=== PATIENT | male | born 1980 | race Caucasian/White ===

== ENCOUNTER 2017-10-01 20:47 | Emergency (ER) | payer OTHER ==
[~2017-10-01] VITALS: Ht 170.2 cm; Wt 100.7 kg
[2017-10-01 20:56] VITALS: Ht 170.2 cm; Wt 100.7 kg
[2017-10-01 21:59] LABS: BASOPHIL % 1.1 % (0-2); PLATELET COUNT 286 x10^3mcL (130-400)
[2017-10-01 22:05] LABS: RED CELL DISTRIBUTION WIDTH 16.5 % (11.5-14.5)
[2017-10-01 22:08] LABS: UA SPECIFIC GRAVITY >=1.030 (1.005-1.035); microscopic required? YES; urine erythrocyte NEGATIVE (NEGATIVE)
[2017-10-01 22:34] LABS: CALCIUM 8.9 mg/dL (8.5-10.1); CARBON DIOXIDE 16.5 mmol/L (21-32); CHLORIDE SERUM 106 mmol/L (98-107); CREATININE SERUM 0.8 mg/dL (0.7-1.3); GFR1 > 60 mL/min; GLUCOSE SERUM 103 mg/dL (74-106); POTASSIUM SERUM 3.9 mmol/L (3.5-5.1); SODIUM SERUM 139 mmol/L (136-145)
[2017-10-01 22:38] LABS: ALBUMIN 3.9 g/dL (3.4-5.0); ALKALINE PHOSPHATASE 141 U/L (46-116); ALT/SGPT 83 U/L (16-63); AMYLASE 42 U/L (25-115); AST/SGOT 64 U/L (15-37); BILIRUBIN TOTAL 0.5 mg/dL (0.20-1.00); LIPASE 174 IU/L (73-393); TOTAL PROTEIN, SERUM 7.9 g/dL (6.4-8.2)
[2017-10-02 00:37] VITALS: BP 101/73
== END 2017-10-02 01:02 | disposition home or self-care (01) ==
LOC: ED 20:47
PROVIDERS: Emergency Medicine
DX: N39.0 Urinary tract infection, site not specified (principal)
CPT/HCPCS: 83880; J2270; J2405; J3010; J3490

== ENCOUNTER 2017-10-04 20:50 | Emergency (ER) | payer OTHER ==
[~2017-10-04] VITALS: Ht 170.2 cm; Wt 100.7 kg
[2017-10-04 20:54] VITALS: Ht 170.2 cm; Wt 100.7 kg
[2017-10-05 02:29] VITALS: BP 139/92
== END 2017-10-05 02:29 | disposition home or self-care (01) ==
LOC: ED 20:50
DX: G89.29 Other chronic pain (principal); M54.5 Low back pain; R11.2 Nausea with vomiting, unspecified; R00.2 Palpitations; I10 Essential (primary) hypertension
CPT/HCPCS: J1885; J2270; J2550